=== PATIENT | male | born 1995 | race Caucasian/White ===

== ENCOUNTER 2016-12-26 21:54 | Emergency (ER) | payer OTHER ==
[2016-12-26] MEDS ORDERED: NORCO, ANEXSIA 5/325MG TABLET (HYDROcodone/ACETAMINOPHEN) As Ordered ONE (22:24)
[2016-12-26] MEDS ORDERED: NORCO 5/325MG TABLET (BULK) As Ordered ONE (23:03)
--- NOTE | 2016-12-26 23:14 | EDDOCDS ---
Physician Documentation [facility] Name: Herb Lindsey Age: 21 yrs Sex: Male : 1995 Arrival Date: 12/26/2016 Time: 21:54 Bed I Private MD: Ish - Complete Info On Cds Disposition: 12/26/16 22:51 Discharged to Home/Self Care. Impression: Nondisplaced fracture of lateral end of right clavicle - Acute, Closed, Initial Encounter. - Condition is Stable. - Discharge Instructions: Clavicle Fracture. - Prescriptions for Ibuprofen 600 mg Oral Tablet - take 1 tablet by ORAL route every 6 hours As needed take with food; 30 tablet. [place] 5- 325 mg Oral Tablet - take 1 tablet by ORAL route every 6 hours As needed MDD: 4 tabs; 20 tablet. - Medication Reconciliation, Local Pharmacy Hours form. - Follow up: Heidy Garcia [facility]; When: 1 - 2 days; Reason: Continuance of care. Follow up: Emergency Department; When: As needed; Reason: Worsening of conditions. - Problem is new. - Symptoms have improved. Historical: - Allergies: no known allergies; - Home Meds: 1. ibuprofen 800 mg Oral tab as needed (Last dose: 12/26/2016 17:00) - PMHx: none; - PSHx: none; - Social history: Smoking status: Patient uses tobacco products, current some day smoker. No barriers to communication noted. - Family history: Not pertinent. - : The pt / caregiver states he / she is not on anticoagulants. Home medication list is obtained from the patient. - Exposure Risk Screening:: None identified. Vital Signs: 12/26 21:55 BP 142 / 70; Pulse 82; Resp 18 S; Temp 97.8(O); Pulse Ox 97% on R/A; Weight 74.84 kg / gr2 164.99 lbs (R); Height 5 ft. 8 in. (172.72 cm) (R); Pain 7/10; 23:01 BP 148 / 79; Pulse 81; Resp 18; Temp 97.2(O); Pulse Ox 95% on R/A; Pain 8/10; kb5 21:55 Body Mass Index 25.09 (74.84 kg, 172.72 cm) gr2 MDM: 22:07 Shoulder, Complete: TO INCLUDE FULL CLAVICLE, THANK YOU. Ordered. EDMS 22:20 HYDROcodone-acetaminophen 5 mg-325 mg 1 tabs PO once ordered. dk1 22:47 Sling ordered. dk1 22:47 HYDROcodone-acetaminophen 4 pack- 5 mg-325 mg 1 packets PO Per package directions; dk1 Dispense with patient. 1 po q4h prn for pain ordered. 22:55 Financial registration complete. gjb Administered Medications: 22:44 Drug: HYDROcodone-acetaminophen 1 tabs [hydrocodone 5 mg-acetaminophen 325 mg tablet (1 jo3 tabs)] Route: PO; 23:11 Follow up: Response: Confirmed pt not driving.; Pain is decreased ld5 23:06 Drug: HYDROcodone-acetaminophen 4 pack- 1 packets [hydrocodone 5 mg-acetaminophen 325 jo3 mg tablet (1 tabs)] {Co-Signature: ld5 (Margarita Wilson RN).} Route: PO; 23:11 Follow up: Response: Med's dispensed home ld5 Signatures: Dispatcher [employer] EDSemaj Farr PA-C PA-C dk1 Dickerson, Laura,RN RN ld5 Kristie ShahRN RN Evangelina Tadeo Jennifer RN jo3 Margarita Wilson RN ld5 The chart was reviewed and I authenticate all verbal orders and agree with the evaluation and treatment provided.Corrections: (The following items were deleted from the chart) 22:27 22:07 Shoulder, complete+XR ordered. EDMS EDMS MTDD
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
--- NOTE | 2016-12-27 08:32 | REP ---
RIGHT SHOULDER SERIES: Four views. HISTORY: Right shoulder pain. FINDINGS: Three views of the right shoulder and an AP view of the right clavicle demonstrate a nondisplaced obliquely oriented fracture through the right clavicular mid shaft. The glenohumeral and acromioclavicular joints are normally aligned. No other fracture is seen. Periarticular soft tissues are unremarkable. IMPRESSION: Mid shaft fracture right clavicle otherwise negative. Signed by Emmanuel De León MD 12/27/2016 11:01 A
--- NOTE | 2016-12-29 00:14 | EDDOCDS ---
Physician Documentation [facility] Name: Herb Lindsey Age: 21 yrs Sex: Male : 1995 Arrival Date: 12/26/2016 Time: 21:54 Bed I Private MD: Ish - Complete Info On Cds Disposition: 12/26/16 22:51 Discharged to Home/Self Care. Impression: Nondisplaced fracture of lateral end of right clavicle - Acute, Closed, Initial Encounter. - Condition is Stable. - Discharge Instructions: Clavicle Fracture. - Prescriptions for Ibuprofen 600 mg Oral Tablet - take 1 tablet by ORAL route every 6 hours As needed take with food; 30 tablet. [place] 5- 325 mg Oral Tablet - take 1 tablet by ORAL route every 6 hours As needed MDD: 4 tabs; 20 tablet. - Medication Reconciliation, Local Pharmacy Hours form. - Follow up: Heidy Garcia [facility]; When: 1 - 2 days; Reason: Continuance of care. Follow up: Emergency Department; When: As needed; Reason: Worsening of conditions. - Problem is new. - Symptoms have improved. Historical: - Allergies: no known allergies; - Home Meds: 1. ibuprofen 800 mg Oral tab as needed (Last dose: 12/26/2016 17:00) - PMHx: none; - PSHx: none; - Social history: Smoking status: Patient uses tobacco products, current some day smoker. No barriers to communication noted. - Family history: Not pertinent. - : The pt / caregiver states he / she is not on anticoagulants. Home medication list is obtained from the patient. - Exposure Risk Screening:: None identified. Vital Signs: 12/26 21:55 BP 142 / 70; Pulse 82; Resp 18 S; Temp 97.8(O); Pulse Ox 97% on R/A; Weight 74.84 kg / gr2 164.99 lbs (R); Height 5 ft. 8 in. (172.72 cm) (R); Pain 7/10; 23:01 BP 148 / 79; Pulse 81; Resp 18; Temp 97.2(O); Pulse Ox 95% on R/A; Pain 8/10; kb5 21:55 Body Mass Index 25.09 (74.84 kg, 172.72 cm) gr2 MDM: 22:07 Shoulder, Complete: TO INCLUDE FULL CLAVICLE, THANK YOU. Ordered. EDMS 22:20 HYDROcodone-acetaminophen 5 mg-325 mg 1 tabs PO once ordered. dk1 22:47 Sling ordered. dk1 22:47 HYDROcodone-acetaminophen 4 pack- 5 mg-325 mg 1 packets PO Per package directions; dk1 Dispense with patient. 1 po q4h prn for pain ordered. 22:55 Financial registration complete. [facility] : [facility] Payment Agreement was scanned into [employer] and attached to record. [facility] 12/27 11:02 T-Sheet-- Draft Copy was scanned into [employer] and attached to record. gb Administered Medications: 12/26 22:44 Drug: HYDROcodone-acetaminophen 1 tabs [hydrocodone 5 mg-acetaminophen 325 mg tablet (1 jo3 tabs)] Route: PO; 23:11 Follow up: Response: Confirmed pt not driving.; Pain is decreased ld5 23:06 Drug: HYDROcodone-acetaminophen 4 pack- 1 packets [hydrocodone 5 mg-acetaminophen 325 jo3 mg tablet (1 tabs)] {Co-Signature: ld5 (Margarita Wilson RN).} Route: PO; 23:11 Follow up: Response: Med's dispensed home ld5 Signatures: Dispatcher [employer] EDMS Kimberly Garcia, Semaj Cuellar PA-C PA-C dk1 Margarita Wilson,RN RN ld5 Kristie Shah RN RN [facility] Evangelina Rubin b Marti Oliver RN jo3 Margarita Wilson RN ld5 The chart was reviewed and I authenticate all verbal orders and agree with the evaluation and treatment provided.Corrections: (The following items were deleted from the chart) 22:27 22:07 Shoulder, complete+XR ordered. EDMS EDMS Attachments: 23:23 [facility] Payment Agreement [facility] 12/27 11:02 T-Sheet-- Draft Copy gb Chart Complete MTDD
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
--- NOTE | 2016-12-29 00:14 | EDDOCDS ---
Physician Documentation [facility] Name: Herb Lindsey Age: 21 yrs Sex: Male : 1995 Arrival Date: 12/26/2016 Time: 21:54 Bed I Private MD: Ish - Complete Info On Cds Disposition: 12/26/16 22:51 Discharged to Home/Self Care. Impression: Nondisplaced fracture of lateral end of right clavicle - Acute, Closed, Initial Encounter. - Condition is Stable. - Discharge Instructions: Clavicle Fracture. - Prescriptions for Ibuprofen 600 mg Oral Tablet - take 1 tablet by ORAL route every 6 hours As needed take with food; 30 tablet. [place] 5- 325 mg Oral Tablet - take 1 tablet by ORAL route every 6 hours As needed MDD: 4 tabs; 20 tablet. - Medication Reconciliation, Local Pharmacy Hours form. - Follow up: Heidy Garcia [facility]; When: 1 - 2 days; Reason: Continuance of care. Follow up: Emergency Department; When: As needed; Reason: Worsening of conditions. - Problem is new. - Symptoms have improved. Historical: - Allergies: no known allergies; - Home Meds: 1. ibuprofen 800 mg Oral tab as needed (Last dose: 12/26/2016 17:00) - PMHx: none; - PSHx: none; - Social history: Smoking status: Patient uses tobacco products, current some day smoker. No barriers to communication noted. - Family history: Not pertinent. - : The pt / caregiver states he / she is not on anticoagulants. Home medication list is obtained from the patient. - Exposure Risk Screening:: None identified. Vital Signs: 12/26 21:55 BP 142 / 70; Pulse 82; Resp 18 S; Temp 97.8(O); Pulse Ox 97% on R/A; Weight 74.84 kg / gr2 164.99 lbs (R); Height 5 ft. 8 in. (172.72 cm) (R); Pain 7/10; 23:01 BP 148 / 79; Pulse 81; Resp 18; Temp 97.2(O); Pulse Ox 95% on R/A; Pain 8/10; kb5 21:55 Body Mass Index 25.09 (74.84 kg, 172.72 cm) gr2 MDM: 22:07 Shoulder, Complete: TO INCLUDE FULL CLAVICLE, THANK YOU. Ordered. EDMS 22:20 HYDROcodone-acetaminophen 5 mg-325 mg 1 tabs PO once ordered. dk1 22:47 Sling ordered. dk1 22:47 HYDROcodone-acetaminophen 4 pack- 5 mg-325 mg 1 packets PO Per package directions; dk1 Dispense with patient. 1 po q4h prn for pain ordered. 22:55 Financial registration complete. [facility] : [facility] Payment Agreement was scanned into [employer] and attached to record. [facility] 12/27 11:02 T-Sheet-- Draft Copy was scanned into [employer] and attached to record. gb Administered Medications: 12/26 22:44 Drug: HYDROcodone-acetaminophen 1 tabs [hydrocodone 5 mg-acetaminophen 325 mg tablet (1 jo3 tabs)] Route: PO; 23:11 Follow up: Response: Confirmed pt not driving.; Pain is decreased ld5 23:06 Drug: HYDROcodone-acetaminophen 4 pack- 1 packets [hydrocodone 5 mg-acetaminophen 325 jo3 mg tablet (1 tabs)] {Co-Signature: ld5 (Margarita Wilson RN).} Route: PO; 23:11 Follow up: Response: Med's dispensed home ld5 Signatures: Dispatcher [employer] EDMS Kimberly Garcia, Semaj Cuellar PA-C PA-C dk1 Margarita Wilson,RN RN ld5 Kristie Shah RN RN [facility] Evangelina Rubin b Marti Oliver RN jo3 Margarita Wilson RN ld5 The chart was reviewed and I authenticate all verbal orders and agree with the evaluation and treatment provided.Corrections: (The following items were deleted from the chart) 22:27 22:07 Shoulder, complete+XR ordered. EDMS EDMS Attachments: 23:23 [facility] Payment Agreement [facility] 12/27 11:02 T-Sheet-- Draft Copy gb Chart Complete MTDD
== END 2016-12-26 23:14 | disposition home or self-care (01) ==
LOC: M ED 21:54
DX: S42.024A Nondisplaced fracture of shaft of right clavicle, initial encounter for closed fracture (principal); W19.XXXA Unspecified fall, initial encounter; Y92.019 Unspecified place in single-family (private) house as the place of occurrence of the external cause; Y93.89 Activity, other specified; Y99.8 Other external cause status; F17.200 Nicotine dependence, unspecified, uncomplicated